=== PATIENT | female | born 1985 | race Caucasian/White ===

== ENCOUNTER 2017-03-30 20:06 | Emergency (ER) | payer OTHER ==
[2017-03-30] MEDS ORDERED: CEPHALEXIN 250 MG CAPSULE PO STA (20:24)
[2017-03-30] MEDS ORDERED: PHENAZOPYRIDINE 100 MG TABLET PO STA (20:24)
[2017-03-30 20:33] LABS: BILIRUBIN,URINE NEGATIVE (NEGATIVE); PH,URINE 6.5 PH (5.0-7.5); UA w/ MICROSCOPIC CHARGE YES
[2017-03-30 20:34] LABS: HCG UR QUAL NEGATIVE
--- NOTE | 2017-03-30 20:37 | ED Physician Documentation ---
PD HPI FEMALE - Stated complaint Stated Complaint: FEMALE - Chief complaint Chief Complaint: Abd Pain - History obtained from History obtained from: Patient - History of Present Illness Timing - onset: How many days ago (3) Timing - details: Gradual onset Associated symptoms: Pelvic pain, Dysuria, Urinary frequency Similar symptoms before: Treatment Recently seen: Not recently seen - Additional information Additional information: Patient is a 31 year old female presenting to the emergency department for dysuria. Patient states that the symptoms have been going on for the last few days but tonight she noticed blood in the urine and the pain was getting severe so she came to the emergency department. Patient denies nausea, vomiting, fever or chills. Review of Systems Constitutional: denies: Fever, Chills Eyes: denies: Decreased vision, Photophobia Ears: denies: Ear pain, Drainage/discharge Nose: denies: Rhinorrhea / runny nose, Congestion Throat: denies: Sore throat Cardiac: denies: Chest pain / pressure GI: reports: Abdominal Pain. denies: Nausea, Vomiting, Constipation, Diarrhea : reports: Dysuria, Frequency, Hematuria. denies: Incontinent, Vaginal bleeding Skin: denies: Rash, Lesions Neurologic: denies: Generalized weakness, Focal weakness Immunocompromised: denies: Immunocompromised PD PAST MEDICAL HISTORY - Present Medications Home Medications: Ambulatory Orders Medication Instructions Recorded Confirmed Cephalexin [Keflex] 500 mg PO BID #14 capsule 03/30/17 Phenazopyridine HCl [Pyridium] 200 mg PO TID PRN #6 tablet 03/30/17 - Allergies Allergies/Adverse Reactions: Allergies Allergy/AdvReac Type Severity Reaction Status Date / Time guaifenesin [From Entex [place]] Allergy Respiratory Verified 03/30/17 20:13 phenylephrine HCl * Allergy Respiratory Verified 03/30/17 20:13 [From Entex LA] phenylpropanolamine HCl * Allergy Respiratory Verified 03/30/17 20:13 [From Entex [place]] Sulfa (Sulfonamide Allergy Unknown Verified 03/30/17 20:13 Antibiotics) PD ED PE NORMAL - Vitals Vital signs reviewed: Yes - General General: Alert and oriented X 3, No acute distress - HEENT HEENT: Atraumatic, PERRL, Moist mucous membranes - Cardiac Cardiac: RRR, No murmur - Respiratory Respiratory: No respiratory distress, Clear bilaterally - Derm Derm: Normal color, Warm and dry, No rash - Extremities Extremities: No deformity, No tenderness to palpate, Normal ROM s pain - Neuro Neuro: Alert and oriented X 3, 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 No: Rebound, Guarding Results - Vitals Vitals: Vital Signs - 24 hr 03/30/17 20:11 Temperature 36.4 C L Heart Rate 64 Respiratory 16 Rate Blood Pressure 114/68 O2 Saturation 100 Oxygen O2 Source Room air - Labs Labs: Laboratory Tests 03/30/17 20:21 Urine Color RED/BLOODY Urine Clarity CLOUDY Urine pH 6.5 Ur Specific [place] 1.020 Urine Protein 100 H Urine Glucose (UA) NEGATIVE Urine Ketones NEGATIVE Urine Occult Blood LARGE H Urine Nitrite NEGATIVE Urine Bilirubin NEGATIVE Urine Urobilinogen 0.2 (NORMAL) Ur Leukocyte Esterase SMALL H Ur Microscopic Review INDICATED Urine Culture Comments Not Reportable Urine HCG, Qual NEGATIVE PD MEDICAL DECISION MAKING - ED course Complexity details: reviewed old records, reviewed results, re-evaluated patient , considered differential, d/w patient ED course: Patient was seen and examined at bedside. Urine was collected and grossly showed hematuria. Patient was treated with keflex and pyridium. Patient was able to tolerate PO without difficulty and showed no signs of systemic disease. Patient required no further work up and was stable for discharge with outpatient follow up. Departure - Departure Disposition: 01 Home, Self Care Clinical Impression: Urinary tract infection, Cystitis Condition: Good Instructions: ED UTI Cystitis Female Follow-Up: JACEK CURRAN [Primary Care Provider] - Within 3 Days Prescriptions: Cephalexin [Keflex] 500 mg PO BID #14 capsule Phenazopyridine HCl [Pyridium] 200 mg PO TID PRN #6 tablet PRN Reason: dysuria Comments: Your symptoms today are being caused by a urinary tract infection. You had your first dose of antibiotics and will need to take them for the next week. You should take the pyridium and motrin and or tylenol for pain. You should make sure you drink plenty of fluids. If your symptoms don't improve after the next 4 days or so you should follow up with your pmd. You should make sure you take your entire course of antibiotics. You should return to the emergency department for uncontrollable fevers, vomiting, new, worsening or uncontrollable symptomsm.
[2017-03-30] MEDS ORDERED: PHENAZOPYRIDINE 100 MG TABLET PO ONE (20:38)
[2017-03-30] MEDS ORDERED: CEPHALEXIN 250 MG CAPSULE PO ONE (20:38)
[2017-03-30 20:51] LABS: UR CULTURE IF IND INDICATED
[2017-03-30 20:52] VITALS: BP 119/64
== END 2017-03-30 20:55 | disposition home or self-care (01) ==
LOC: ED 20:06
DX: N30.00 Acute cystitis without hematuria (principal)
CPT/HCPCS: 81001; 81025; 87077; 87086; 87181; 99283; A9270; 81003

== ENCOUNTER 2017-04-10 20:19 | Emergency (ER) | payer OTHER ==
[2017-04-10 20:45] LABS: BILIRUBIN,URINE NEGATIVE (NEGATIVE); PH,URINE 6.5 PH (5.0-7.5)
[2017-04-10 20:51] LABS: HCG UR QUAL NEGATIVE
--- NOTE | 2017-04-10 21:01 | ED Physician Documentation ---
PD HPI FEMALE - Stated complaint Stated Complaint: FEMALE - Chief complaint Chief Complaint: General - History obtained from History obtained from: Patient - History of Present Illness Timing - onset: Today Timing - details: Gradual onset, Still present Similar symptoms before: Has not had sx before (UTI, and had smptoms last week, treated with Keflex and now with symptoms back again.) Recently seen: Clinic Review of Systems Constitutional: denies: Fever, Chills GI: denies: Abdominal Pain, Vomiting Musculoskeletal: denies: Back pain PD PAST MEDICAL HISTORY - Past Medical History Past Medical History: Yes Respiratory: Asthma Neuro: Headache/migraine : Other Psych: None Musculoskeletal: None - Past Surgical History Past Surgical History: Yes - Present Medications Home Medications: Ambulatory Orders Medication Instructions Recorded Confirmed Ciprofloxacin HCl [Cipro] 250 mg PO BID #14 tablet 04/10/17 - Allergies Allergies/Adverse Reactions: Allergies Allergy/AdvReac Type Severity Reaction Status Date / Time guaifenesin [From Entex LA] Allergy Respiratory Verified 03/30/17 20:13 phenylephrine HCl * Allergy Respiratory Verified 03/30/17 20:13 [From Entex LA] phenylpropanolamine HCl * Allergy Respiratory Verified 03/30/17 20:13 [From Entex LA] Sulfa (Sulfonamide Allergy Unknown Verified 03/30/17 20:13 Antibiotics) - Social History Does the pt smoke?: No Smoking Status: Never smoker Does the pt drink ETOH?: Yes Does the pt have substance abuse?: No - Immunizations Immunizations are current?: Yes - POLST Patient has POLST: No PD ED PE NORMAL - Vitals Vital signs reviewed: Yes - General General: Alert and oriented X 3, Well developed/nourished - Abdomen Abdomen: Soft, Non tender - Female Female : Deferred - Back Back: No CVA TTP Results - Vitals Vitals: Oxygen O2 Source Room air - Labs Labs: Microbiology 04/10/17 20:35 Urine Culture - Final Urine,Clean Catch Escherichia Coli Laboratory Tests 04/10/17 04/10/17 20:35 20:35 Urine Color STRAW Urine Clarity HAZY Urine pH 6.5 Ur Specific [place] <=1.005 <=1.005 Urine Protein NEGATIVE Urine Glucose (UA) NEGATIVE Urine Ketones NEGATIVE Urine Occult Blood LARGE H Urine Nitrite NEGATIVE Urine Bilirubin NEGATIVE Urine Urobilinogen 0.2 (NORMAL) Ur Leukocyte Esterase LARGE H Urine RBC 0-5 Urine WBC >25 H Urine WBC Clumps PRESENT Ur Squamous Epith Cells FEW Squamous Urine Bacteria Few Urine Culture Comments INDICATED Urine HCG, Qual NEGATIVE PD MEDICAL DECISION MAKING - ED course Complexity details: reviewed results, considered differential (had been on Keflex and is allergic to Sulfa. Macrobid would not be strong enough, I think. Will treat Cipro. ), d/w patient Departure - Departure Disposition: Home, Self Care Clinical Impression: Recurrent UTI (urinary tract infection) Condition: Stable Record reviewed to determine appropriate education?: Yes Instructions: ED UTI Cystitis Female Follow-Up: JACEK CURRAN [Primary Care Provider] - Prescriptions: Ciprofloxacin HCl [Cipro] 250 mg PO BID #14 tablet Comments: Drink lots of fluids. Phenazopyridine 3 times daily as needed for discomfort. Cipro twice daily for a week for the infection. No aggressive sports activity while taking the Cipro as it can cause tendon inflammation for small percent of people. Recheck if not improved over the next few days. Discharge Date/Time: 04/10/17 21:56
[2017-04-10 21:06] LABS: UR CULTURE IF IND INDICATED; WBC,URINE >25 /HPF (0-5)
[2017-04-10] MEDS ORDERED: PHENAZOPYRIDINE 100 MG TABLET PO STA (21:31)
[2017-04-10] MEDS ORDERED: CIPROFLOXACIN 250 MG TABLET PO STA (21:31)
[2017-04-10] MEDS ORDERED: CIPROFLOXACIN 250 MG TABLET PO ONE (21:44)
[2017-04-10] MEDS ORDERED: PHENAZOPYRIDINE 100 MG TABLET PO ONE (21:44)
[2017-04-10 21:53] VITALS: BP 102/72
== END 2017-04-10 21:56 | disposition home or self-care (01) ==
LOC: ED 20:19
DX: N39.0 Urinary tract infection, site not specified (principal)
CPT/HCPCS: 81001; 81025; 87077; 87086; 87181; 99283; A9270

== ENCOUNTER 2017-04-19 08:40 | Outpatient (CLI) | payer OTHER ==
--- NOTE | 2017-04-19 14:51 | MRI Report ---
EXAM: RIGHT MIDFOOT MRI WITHOUT CONTRAST EXAM DATE: 04/19/2017 09:40 AM. CLINICAL HISTORY: INJURY NOV 2008. pt was wearing high heels and fell, chronic, nagging pain. COMPARISON: None. TECHNIQUE: Multiplanar, multisequence T1-weighted and fluid-sensitive sequences of the midfoot withou t contrast. Other: marker at site of pain in the medial plantar aspect. FINDINGS: Bones: No fractures or subluxations. No marrow edema. No bone lesions. 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 Articular Cartilage: Cartilaginous thinning in the phalangeal sesamoid joint of the great toe. Ligaments: The visualized intertarsal, intermetatarsal, and tarsometatarsal ligaments are intact. Thi s includes the Lisfranc ligament. The visualized collateral ligaments are intact. Tendons: The flexor and extensor tendons are unremarkable. Musculature: No edema or fatty atrophy. Other: No effusions in the other visualized joints. The visualized portion of the tarsal tunnel is un remarkable. No intermetatarsal bursitis. The subcutaneous tissues are unremarkable. IMPRESSION: 1. 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 2. No other MRI abnormalities in the midfoot. [facility] MUSCULOSKELET[facility]IOLOGY SECTION Referring Provider Line: [phone] SITE ID: [id number]
== END 2017-04-19 08:41 | disposition home or self-care (01) ==
LOC: DI 08:40
PROVIDERS: ATTEND Podiatrist
DX: M19.071 Primary osteoarthritis, right ankle and foot (principal); M25.474 Effusion, right foot

== ENCOUNTER 2019-07-10 19:41 | Emergency (ER) | payer OTHER ==
--- NOTE | 2019-07-10 19:55 | ED Physician Documentation ---
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 She dropped a desk on her foot yesterday and has moderate pain near the fifth digit. No other injuries. She is able to walk and bear weight. Declines pain medication on initial evaluation.) Review of Systems Constitutional: reports: Reviewed and negative Ears: reports: Reviewed and negative Nose: reports: Reviewed and negative PD PAST MEDICAL HISTORY - Past Medical History Respiratory: Asthma : Other Psych: None Musculoskeletal: None - Past Surgical History Past Surgical History: Yes - Allergies Allergies/Adverse Reactions: Allergies Allergy/AdvReac Type Severity Reaction Status Date / Time guaifenesin [From Entex LA] Allergy Respiratory Verified 07/10/19 19:49 phenylephrine HCl * Allergy Respiratory Verified 07/10/19 19:49 [From Entex LA] phenylpropanolamine HCl * Allergy Respiratory Verified 07/10/19 19:49 [From Entex LA] Sulfa (Sulfonamide Allergy Unknown Verified 07/10/19 19:49 Antibiotics) - Social History Does the pt smoke?: No Smoking Status: Never smoker Does the pt drink ETOH?: Yes Does the pt have substance abuse?: No - Immunizations Immunizations are current?: Yes - POLST Patient has POLST: No PD ED PE NORMAL - Vitals Vital signs reviewed: Yes - General General: Alert and oriented X 3, No acute distress - Extremities Extremities: Other (She is quite tender and swollen to the distal fifth metacarpal and proximal phalanx of that digit. Normal neurovascular function at the tip.) - Neuro Neuro: Alert and oriented X 3, Normal speech Results - Vitals Vitals: Vital Signs - 24 hr 07/10/19 19:43 Temperature 36.5 C Heart Rate 78 Respiratory 16 Rate Blood Pressure 129/74 O2 Saturation 100 Oxygen O2 Source Room air - Rads (name of study) L foot 3v Radiology: EMP read contemporaneously (Transverse process of the distal phalanx of the small toe) PD MEDICAL DECISION MAKING - ED course ED course: 34-year-old woman with isolated toe injury, splinted with a shoe and rianna taped. She declined pain medication. Departure - Departure Disposition: 01 Home, Self Care Clinical Impression: Toe fracture, left Qualifiers: Encounter type: initial encounter Toe: lesser toe Fracture type: closed Phalanx: distal Fracture alignment: nondisplaced Qualified Code(s): S92.535A - Nondisplaced fracture of distal phalanx of left lesser toe(s), initial encounter for closed fracture Condition: Good Record reviewed to determine appropriate education?: Yes Instructions: ED Fx Toe Closed Comments: Tylenol or ibuprofen as needed for pain. Elevate Return as needed.
[2019-07-10] MEDS ORDERED: IBUPROFEN 800 MG TABLET PO STA (20:19)
--- NOTE | 2019-07-10 20:29 | XRAY Report ---
Reason: Trauma, pain, swelling, desk fell on top of foot. Procedure Date: 07/10/2019 Accession Number: [id number] / [id number] Procedure: XR - Foot 3 View LT CPT Code: FULL RESULT: EXAM: LEFT FOOT RADIOGRAPHY EXAM DATE: 07/10/2019 08:03 PM. CLINICAL HISTORY: Trauma, pain, swelling, desk fell on top of foot. COMPARISON: None. TECHNIQUE: 3 views. FINDINGS: Bones: Normal. No fractures or bone lesions. Joints: Normal. No subluxations. Soft Tissues: Normal. No soft tissue swelling. IMPRESSION: No fracture or subluxation. [facility] ADDENDUM: 07/10/19 20:34 There is a transverse nondisplaced fracture of the fifth distal phalanx.
[2019-07-10 20:50] VITALS: BP 126/78
== END 2019-07-10 20:47 | disposition home or self-care (01) ==
LOC: ED 19:41
DX: S92.535A Nondisplaced fracture of distal phalanx of left lesser toe(s), initial encounter for closed fracture (principal); W20.8XXA Other cause of strike by thrown, projected or falling object, initial encounter; Y93.89 Activity, other specified; Y92.219 Unspecified school as the place of occurrence of the external cause; Y99.0 Civilian activity done for income or pay
CPT/HCPCS: 1040M; 73630; 99282; 99283; A9270

== ENCOUNTER 2022-07-30 08:00 | Outpatient (CLI) | payer OTHER ==
--- NOTE | 2022-07-30 14:12 | XRAY Report ---
PROCEDURE: Knee 3 View LT INDICATIONS: LEFT KNEE PAIN TECHNIQUE: 3 views of the left knee(s) were acquired. COMPARISON: None. FINDINGS: Bones: No fractures or dislocations. No suspicious bony lesions. Soft tissues: No joint effusion. No suspicious soft tissue calcifications. IMPRESSION: No acute fracture. No osseous lesion. If symptoms and/or clinical suspicion for patholog y continue, further assessment with repeat plain films, or advanced imaging (e.g., CT, MRI, or bone s can) is recommended for further assessment. Reviewed by: Irais Cook MD on 07/30/2022 2:11 PM PDT Approved by: Irais Cook MD on 07/30/2022 2:11 PM PDT Station ID: [id number]
== END 2022-07-30 23:59 | disposition home or self-care (01) ==
LOC: DI.WOS 08:00
PROVIDERS: ATTEND Physician Assistant Surgical
DX: M25.562 Pain in left knee (principal)

== ENCOUNTER 2023-04-11 15:02 | Outpatient (CLI) | payer OTHER | END 2023-04-11 15:03 | disposition home or self-care (01) | LOC: DI 15:02 | PROVIDERS: ATTEND Physician Assistant | DX: R60.0 Localized edema (principal) | CPT/HCPCS: 93306 ==